=== PATIENT | male | born 1950 | race Native Hawaiian/Other Pacific Islander ===

== ENCOUNTER 2021-05-19 14:32 | Outpatient (CLI) | payer OTHER ==
[2021-05-19 14:48] LABS: PLATELET COUNT 523 K/uL (142-355)
[2021-05-19 15:00] LABS: POTASSIUM 4.6 mmol/L (3.6-5.2)
== END 2021-05-19 19:13 | disposition home or self-care (01) ==
LOC: LAB 14:32
PROVIDERS: ATTEND Internal Medicine Infectious Disease
DX: M25.511 Pain in right shoulder (principal); M01.X11 Direct infection of right shoulder in infectious and parasitic diseases classified elsewhere
CPT/HCPCS: 80048; 80202; 85027; 86140